=== PATIENT | male | born 1975 | race Caucasian/White ===

== ENCOUNTER 2020-10-09 12:31 | Emergency (ER) | payer BC ==
[~2020-10-09] VITALS: Ht 170.2 cm; Wt 165.6 kg
[2020-10-09] MEDS ORDERED: IBUP-1957 PO (13:42)
[2020-10-09] MEDS ORDERED: SULF1TAB48 PO (13:42)
[2020-10-09] MEDS: KETOROLAC TROMETHAMINE INJ 30 MG/ML VIAL IM ONE (13:44)
[2020-10-09] MEDS ORDERED: KETOROLAC TROMETHAMINE INJ 30 MG/ML VIAL ONE (14:00)
--- NOTE | 2020-10-09 14:06 | NUR ---
The patient alert and oriented x4. Patient discharged to home in stable condition. Written and verbal after care instructions given. Patient verbalizes understanding of instruction.
[2020-10-09 14:07] VITALS: BP 141/85
== END 2020-10-09 14:07 | disposition home or self-care (01) ==
LOC: ER 12:40
DX: L03.115 Cellulitis of right lower limb (principal); R60.0 Localized edema; G89.29 Other chronic pain; F17.200 Nicotine dependence, unspecified, uncomplicated
CPT/HCPCS: 36415; 85730; 93971; 96372; 99284; J1885